=== PATIENT | male | born 1940 | race African-American/Black ===

== ENCOUNTER 2018-01-07 10:34 | Day surgery (SDC) | payer MEDICARE ==
[~2018-01-07] VITALS: Ht 180.3 cm; Wt 81.2 kg
[~2018-01-07 10:34] MED LIST: BETIMOL0.25 % OU; CETIRIZ/PSE1 TAB PO; COZAAR100 MG PO; FLEXERIL PO; FLEXERIL5 MG PO; GLIPIZIDE10 MG PO; HYDROCHLORO25 MG/TAB PO; LORTAB 5/3255 MG PO; LOSARTAN POTASS50 MG PO; METFORMIN1000 MG PO; METFORMIN500 MG PO; METOPROL TAR50 MG PO; METOPROLOL TART50 MG PO; MICARDIS40 MG PO; NAPROSYN500 MG PO; PANTOPRAZOLE SO40 MG PO; PRAVASTATIN40 MG PO; SIMBRINZA1 SUS OU; STOOL SOFTE1 PO; TIZANIDINE4 MG PO; ZPAK PO
[2018-01-07 13:34] VITALS: BP 139/77
== END 2018-01-07 13:42 | disposition home or self-care (01) ==
LOC: ENDO 10:34
PROVIDERS: ATTEND Internal Medicine Gastroenterology
PROC: 0DBL8ZX Excision of Transverse Colon, Via Natural or Artificial Opening Endoscopic, Diagnostic (ICD-10-PCS; principal; 2018-01-07)
DX: Z12.11 Encounter for screening for malignant neoplasm of colon (principal); D12.3 Benign neoplasm of transverse colon; K64.4 Residual hemorrhoidal skin tags; K64.8 Other hemorrhoids; I10 Essential (primary) hypertension; E11.9 Type 2 diabetes mellitus without complications; G47.30 Sleep apnea, unspecified; Z86.010 Personal history of colon polyps

== ENCOUNTER 2018-08-31 10:50 | Inpatient (IN) | payer MEDICARE ==
[~2018-08-31] VITALS: Ht 180.3 cm; Wt 79.4 kg
[~2018-08-31 10:50] MED LIST changes: -BETIMOL0.25 % OU; +BETIMOL0.5 % OU
[2018-08-31] MEDS ORDERED: METOPROL TAR100 MG PO (16:55)
[2018-08-31] MEDS ORDERED: CLONIDINE0.1 MG PO (16:56)
[2018-08-31] MEDS ORDERED: LUMIGAN0.01 % OU (16:57)
[2018-08-31] MEDS ORDERED: ASPIRIN LOW DOS81 M1 PO (17:14)
[2018-08-31] MEDS ORDERED: PRANDIN1 MG PO (17:15)
[2018-08-31] MEDS ORDERED: HYDROCO/APAP1 T10 PO (17:16)
[2018-08-31] MEDS ORDERED: COZAAR100 MG PO (17:19)
[2018-09-05] VITALS (9 sets, daily range): BP systolic 148–179; BP diastolic 86–114
--- NOTE | 2018-09-05 17:22 | NUR ---
PT ARRIVED FROM OR VIA BED AT 1721
--- NOTE | 2018-09-05 19:20 | NUR ---
ASSESSMENT IS COMPLETED: IV SITE IS FREE FROM REDNESS OR EDEMA. HR IS REG, PULSES ARE STRONG X4, ABD IS SOFT WITH ACTIVE BS. BREATH SOUNDS ARE CLEAR BILATERALLY. SCD IN PLACE. FAMILY IN THE ROOM. CONTINUE TO OSBERVE AND MONITOR.
[2018-09-06 00:27] VITALS: BP 143/88
--- NOTE | 2018-09-06 03:07 | NUR ---
PATIENT RESTING IN BED WITH AT BEDSIDE. SLING IN PLACE TO RIGHT ARM. CMS TO RIGHT FINGERS ARE WNL. PATIENT VOIDED 300CC OF YELLOW URINE IN URINAL. MEDICATED FOR POST-OP RIGHT SHOULDER PAIN-7/10 ON PAIN SCALE WITH PERCOCET 10/325MG PO FOR PAIN. SAFETY PRECAUTIONS REINFORCED. CALL LIGHT IN REACH. WILL CONT TO MONITOR.
[2018-09-06 05:02] VITALS: BP 150/92
[2018-09-06 06:10] LABS: HEMATOCRIT 41.9 % (39.0-50.0); HEMOGLOBIN 14.1 g/dl (14.0-18.0); IMMATURE GRANULOCYTES 0.5 % (0.0-5.0); MEAN CELL VOLUME 86.4 fL CALC (80.0-100.0); MEAN CORPUSCULAR HGB 29.1 pG CALC (26.0-32.0); MEAN CORPUSCULAR HGB CONC 33.7 g/L CALC (32.0-36.0); NEUT# 7.37 thou/uL (1.82-7.42); RED BLOOD COUNT 4.85 mill/uL (4.70-6.10); RED CELL DISTRI WIDTH 13.8 % (11.5-15.5)
[2018-09-06 06:29] LABS: ALBUMIN 3.9 g/dL (3.2-5.0); ALKALINE PHOSPHATASE 44 u/l (38-126); ANION GAP 19 (6-22 (CALC)); BILIRUBIN, TOTAL 0.8 mg/dL (0.0-1.4); BUN 10 mg/dL (8-23); BUN/CREATININE RATIO 16 (12-20 (CALC)); CARBON DIOXIDE 19 mmol/l (22-30); CHLORIDE 103 mmol/l (95-108); CREATININE 0.7 mg/dL (0.7-1.3); GFR > 60 ML/MIN (>=60 (CALC)); GFR FOR AFR.AMER. > 60 ML/MIN (>=60 (CALC)); POTASSIUM 3.9 mmol/l (3.5-5.1); SGOT/AST 20 u/l (19-48); SODIUM 137 mmol/l (137-146); TOTAL PROTEIN 6.3 g/dL (6.3-8.2)
[2018-09-06 07:35] VITALS: BP 187/96
--- NOTE | 2018-09-06 07:35 | NUR ---
PT RESTING SITTING UP IN BED, AM ASSESSMENT COMPLETED SEE INTERVENTION, SKIN WARM AND DRY DRESSING TO R AHOULDER INTACT SLING IN PLACE SOME EDEMA NOTED TO R HAND, GOOD MOVEMENT AND SENSATION. REMAINS AT BEDSIDE, BP ELEVATED , PT HAD HYPERTENSION LAST PM WITH MEDICATION CHANGES, WILL ADDRESS WITH MD THIS AM. CALL WARD WITHIN REACH, COMPLAINS OF PAIN TO R SHOULDER, WILL MEDICATE ORDERED, ACCU CHECK COMPLETED, COVERAGE GIVEN ORDERED. WILL CONTINUE TO MONITOR.
--- NOTE | 2018-09-06 10:30 | NUR ---
MEDICATED ORDERED EARLIER FOR HYPERTENSION WILL CONTINUE TO MONITOR, REMAINS AT BEDSIDE, PT STATES GOOD RELIEF WITH PAIN MEDICATION.
--- NOTE | 2018-09-06 11:30 | NUR ---
PT AMBULATED IN TERAN WAY WITH SPOUSE, SOME CONTINUED EDEMA TO R HAND, PT CONTINUES TO HAVE GOOD MOVEMENT AND SENSATION, CALL WARD WITHIN, COVERAGE GIVEN FOR ACCU CHECK, PT TOLERAING DIET WELL, WILL CONTINUE TO MONITOR.
[2018-09-06 11:57] VITALS: BP 150/84
--- NOTE | 2018-09-06 14:33 | NUR ---
PT REMAINS SITTING UP ON EDGE OF BED, OFFERS NO NEW COMPLAINTS, GONE AT THIS TIME, CALL WARD WITHIN REACH, WILL CONTINUE TO MONITOR.
[2018-09-06 16:39] VITALS: BP 125/70
[2018-09-06 20:00] VITALS: BP 110/66
--- NOTE | 2018-09-06 21:40 | NUR ---
PATIENT RESTING IN BED WITH AT BEDSIDE. PATIENT IS AWAKE ALERT AND ORIENTEDX3. BS-248 AND PATIENT COVERED WITH NOVAL SLIDING SCALE COVERAGE. MEDICATED FOR POST-OP PAIN WITH PERCOCET TABS 2. CMS TO RIGHT FINGERS ARE WNL. SLIGHTLY SWOLLEN. SAFETY PRECAUTIONS REINFORCED. CALL LIGHT IN REACH. WILL CONT TO MONITOR.
--- NOTE | 2018-09-07 | NUR ---
APPEARS SLEEPING AT THIS TIME WITH HOB ELEVATED AND EYES CLOSED. CALL LIGHT IN REACH. WILL CONT TO MONITOR.
[2018-09-07 00:07] VITALS: BP 117/67
--- NOTE | 2018-09-07 05:00 | NUR ---
PATIENT RESTING IN BED-DRESSING TO RIGHT SHOULDER REMOVED PER MD ORDERS AND LEFT ASMITA. SLING ALSO REMOVED. CMS TO FINGERS WNL. RESTING IN RECLINER AT BEDSIDE. CALL LIGHT IN REACH. WILL CONT TO MONITOR.
[2018-09-07 05:25] VITALS: BP 148/86
--- NOTE | 2018-09-07 07:10 | NUR ---
PT REPORT RECEIVED FROM ELIANA MEDEROS. PT SLEEPING, NO S/S OF DISTRESS. CALL LIGHT IN REACH. WILL CONTINUE TO MONITOR
[2018-09-07 07:41] LABS: HEMATOCRIT 39.5 % (39.0-50.0); HEMOGLOBIN 13.2 g/dl (14.0-18.0); IMMATURE GRANULOCYTES 0.4 % (0.0-5.0); MEAN CELL VOLUME 86.1 fL CALC (80.0-100.0); MEAN CORPUSCULAR HGB 28.8 pG CALC (26.0-32.0); MEAN CORPUSCULAR HGB CONC 33.4 g/L CALC (32.0-36.0); NEUT# 6.96 thou/uL (1.82-7.42); RED BLOOD COUNT 4.59 mill/uL (4.70-6.10); RED CELL DISTRI WIDTH 14.1 % (11.5-15.5)
[2018-09-07 07:42] VITALS: BP 158/82
--- NOTE | 2018-09-07 07:42 | NUR ---
PT ASSESSMENT COMPLETE. A/O X3. SPEECH IS CLEAR. RESP EVEN AND UNLABORED. LUNG SOUNDS CLEAR. INCENTIVE SPIROMETER AT BEDSIDE. BOWEL SOUNDS ACTIVE X4. STRONG RADIAL AND PEDAL PULSES. #20 LH LS. FLUSHED AND PATENT. SITE APPEARS HEALTHY. PT POST OP RT SHOULDER. PT C/O ACHING RT SHOULDER PAIN 7 OUT OF 10 ON PAIN SCALE. MEDICATED W/ TWO PERCOCET PO. ICE APPLIED TO RT SHOULDER. SWELLING NOTED, ELEVATED ON A PILLOW WELL. PT DENIES ANY FURTHER NEEDS. POC DISCUSSED. SAFETY PRECAUTIONS IN PLACE. CALL LIGHT IN REACH. WILL CONTINUE TO MONITOR
[2018-09-07 08:16] LABS: ALBUMIN 3.5 g/dL (3.2-5.0); ALKALINE PHOSPHATASE 46 u/l (38-126); ANION GAP 14 (6-22 (CALC)); BILIRUBIN, TOTAL 0.8 mg/dL (0.0-1.4); BUN 15 mg/dL (8-23); BUN/CREATININE RATIO 19 (12-20 (CALC)); CARBON DIOXIDE 23 mmol/l (22-30); CHLORIDE 103 mmol/l (95-108); CREATININE 0.8 mg/dL (0.7-1.3); GFR > 60 ML/MIN (>=60 (CALC)); GFR FOR AFR.AMER. > 60 ML/MIN (>=60 (CALC)); POTASSIUM 3.8 mmol/l (3.5-5.1); SGOT/AST 22 u/l (19-48); SODIUM 137 mmol/l (137-146)
[2018-09-07] MEDS ORDERED: PERCOCET1 TA4 PO (08:32)
[2018-09-07 08:42] VITALS: BP 158/82
--- NOTE | 2018-09-07 11:15 | NUR ---
D/C INSTRUCTIONS AND RT SHOULDER CARE DISCUSSED W/ PT AND SPOUSE. BOTH STATE UNDERSTANDING. IV REMOVED. CATHETER INTACT. PT DENIES ANY FURTHER NEEDS. PT GETTING DRESSED AT THIS TIME W/ ASSISTANCE OF .
--- NOTE | 2018-09-07 11:35 | NUR ---
Discharge instructions given. Patient verbalizes understanding of same. Discharged in stable condition via Wheelchair to Home with spouse. All belongings sent with pt.
== END 2018-09-07 11:35 | disposition home health service (06) | DRG 483 ==
LOC: MS2 09-05 07:30
PROVIDERS: ADMIT Orthopaedic Surgery; ATTEND Internal Medicine Geriatric Medicine
PROC: 0RRJ00Z Replacement of Right Shoulder Joint with Reverse Ball and Socket Synthetic Substitute, Open Approach (ICD-10-PCS; principal; 2018-09-05)
PROC: 0LS30ZZ Reposition Right Upper Arm Tendon, Open Approach (ICD-10-PCS; 2018-09-05)
PROC: 3E0T3BZ Introduction of Anesthetic Agent into Peripheral Nerves and Plexi, Percutaneous Approach (ICD-10-PCS; 2018-09-05)
DX: M19.011 Primary osteoarthritis, right shoulder (principal); M75.111 Incomplete rotator cuff tear or rupture of right shoulder, not specified as traumatic; S46.111A Strain of muscle, fascia and tendon of long head of biceps, right arm, initial encounter; I10 Essential (primary) hypertension; E11.9 Type 2 diabetes mellitus without complications; E78.5 Hyperlipidemia, unspecified; I25.10 Atherosclerotic heart disease of native coronary artery without angina pectoris; X58.XXXA Exposure to other specified factors, initial encounter; Z85.46 Personal history of malignant neoplasm of prostate; Z86.73 Personal history of transient ischemic attack (TIA), and cerebral infarction without residual deficits
CPT/HCPCS: C9290; J2710

== ENCOUNTER → 2018-11-23 | Outpatient (REF) | payer MEDICARE ==
[~2018-11-23] MED LIST changes: +ASPIRIN LOW DOS81 M1 PO; +CLONIDINE0.1 MG PO; +HYDROCO/APAP1 T10 PO; +LUMIGAN0.01 % OU; +METOPROL TAR100 MG PO; +PERCOCET1 TA4 PO; +PRANDIN1 MG PO
[2018-11-23 10:18] LABS: HEMATOCRIT 39.2 % (39.0-50.0); HEMOGLOBIN 12.7 g/dl (14.0-18.0); MEAN CELL VOLUME 88.5 fL CALC (80.0-100.0); MEAN CORPUSCULAR HGB 28.7 pG CALC (26.0-32.0); MEAN CORPUSCULAR HGB CONC 32.4 g/L CALC (32.0-36.0); NEUT# 2.05 thou/uL (1.82-7.42); RED BLOOD COUNT 4.43 mill/uL (4.70-6.10)
[2018-11-23 11:11] LABS: ALKALINE PHOSPHATASE 58 u/l (38-126); ANION GAP 15 (6-22 (CALC)); BILIRUBIN, TOTAL 0.3 mg/dL (0.0-1.4); BUN 16 mg/dL (8-23); BUN/CREATININE RATIO 18 (12-20 (CALC)); CALCULATED LDLCHOLESTEROL 72 mg/dL (62-129 (CALC)); CARBON DIOXIDE 28 mmol/l (22-30); CHLORIDE 103 mmol/l (95-108); CHOLESTEROL HDL RATIO 3.3 (<4.4 (CALC)); CREATININE 0.9 mg/dL (0.7-1.3); GFR > 60 ML/MIN (>=60 (CALC)); GFR FOR AFR.AMER. > 60 ML/MIN (>=60 (CALC)); HDL CHOLESTEROL 38 mg/dL (>=40); POTASSIUM 3.9 mmol/l (3.5-5.1); SGOT/AST 16 u/l (19-48); SODIUM 141 mmol/l (137-146); TOTAL CHOLESTEROL 126 mg/dl (0-199); TOTAL PROTEIN 6.4 g/dL (6.3-8.2); TRIGLYCERIDES REFLEX TO dLDL 82 mg/dl (30-149); VLDL CHOLESTROL 16 mg/dl (0-38 (CALC))
== END | disposition home or self-care (01) ==
LOC: LAB 09:36
PROVIDERS: ATTEND Internal Medicine Geriatric Medicine
DX: I10 Essential (primary) hypertension (principal); E78.5 Hyperlipidemia, unspecified; Z12.5 Encounter for screening for malignant neoplasm of prostate; E11.9 Type 2 diabetes mellitus without complications

== ENCOUNTER → 2018-12-18 | Outpatient (REF) | payer MEDICARE ==
[2018-12-18 09:30] LABS: ALBUMIN 4.4 g/dL (3.2-5.0); ALKALINE PHOSPHATASE 61 u/l (38-126); ANION GAP 13 (6-22 (CALC)); BILIRUBIN, TOTAL 0.5 mg/dL (0.0-1.4); BUN 15 mg/dL (8-23); BUN/CREATININE RATIO 15 (12-20 (CALC)); CARBON DIOXIDE 32 mmol/l (22-30); CHLORIDE 99 mmol/l (95-108); GFR > 60 ML/MIN (>=60 (CALC)); GFR FOR AFR.AMER. > 60 ML/MIN (>=60 (CALC)); POTASSIUM 4.1 mmol/l (3.5-5.1); SGOT/AST 18 u/l (19-48); SODIUM 139 mmol/l (137-146); TOTAL PROTEIN 6.9 g/dL (6.3-8.2)
== END | disposition home or self-care (01) ==
LOC: LAB 08:48
PROVIDERS: ATTEND Internal Medicine Geriatric Medicine
DX: E11.9 Type 2 diabetes mellitus without complications (principal)

== ENCOUNTER 2018-12-22 13:00 | Outpatient (RCR) | payer MEDICARE | END 2018-12-22 14:00 | disposition home or self-care (01) | LOC: PT 13:00 | PROVIDERS: ATTEND Orthopaedic Surgery | DX: Z47.1 Aftercare following joint replacement surgery (principal); Z96.611 Presence of right artificial shoulder joint; M25.511 Pain in right shoulder ==

== ENCOUNTER 2019-03-10 06:23 | Day surgery (SDC) | payer MEDICARE ==
[~2019-03-10] VITALS: Ht 175.3 cm; Wt 79.8 kg
[~2019-03-10 06:23] MED LIST changes: +FUROSEMIDE20 MG PO; +JANUVIA100 MG PO; +KLOR-CON M2020 MEQ PO
[2019-03-10 08:27] VITALS: BP 161/87
== END 2019-03-10 08:37 | disposition home or self-care (01) ==
LOC: ENDO 06:23 → ORM 17:15 → ENDO 17:20 → ORM 17:20
PROVIDERS: ATTEND Internal Medicine Gastroenterology
PROC: 0DJD8ZZ Inspection of Lower Intestinal Tract, Via Natural or Artificial Opening Endoscopic (ICD-10-PCS; principal; 2019-03-10)
DX: Z12.11 Encounter for screening for malignant neoplasm of colon (principal); K57.30 Diverticulosis of large intestine without perforation or abscess without bleeding; K64.4 Residual hemorrhoidal skin tags; I10 Essential (primary) hypertension; E11.9 Type 2 diabetes mellitus without complications; Z86.010 Personal history of colon polyps

== ENCOUNTER 2021-11-17 14:27 | Emergency (ER) | payer MEDICARE ==
[~2021-11-17] VITALS: Ht 175.3 cm; Wt 72.0 kg
[2021-11-17 15:07] LABS: HEMATOCRIT 44.7 % (39.0-50.0); HEMOGLOBIN 14.1 g/dl (14.0-18.0); IMMATURE GRANULOCYTES 0.2 % (0.0-5.0); MEAN CORPUSCULAR HGB CONC 31.5 g/dL CAL (32.0-36.0); NEUT# 2.32 thou/uL (1.82-7.42); RED BLOOD COUNT 4.86 mill/uL (4.70-6.10); RED CELL DISTRI WIDTH 14.4 % (11.5-15.5)
[2021-11-17 15:08] VITALS: BP 190/102
[2021-11-17 15:19] LABS: ALBUMIN 4.3 g/dL (3.2-5.0); ALKALINE PHOSPHATASE 75 u/l (38-126); ANION GAP 17 (6-22 (CALC)); BILIRUBIN, TOTAL 0.3 mg/dL (0.0-1.4); BUN 11 mg/dL (8-23); BUN/CREATININE RATIO 14 (12-20 (CALC)); CARBON DIOXIDE 22 mmol/l (22-30); CHLORIDE 106 mmol/l (95-108); CREATININE 0.8 mg/dL (0.7-1.3); GFR > 60 ML/MIN (>=60 (CALC)); GFR FOR AFR.AMER. > 60 ML/MIN (>=60 (CALC)); POTASSIUM 4.1 mmol/l (3.5-5.1); SGOT/AST 21 u/l (19-48); SODIUM 140 mmol/l (137-146); TOTAL PROTEIN 7.4 g/dL (6.3-8.2)
[2021-11-17 15:24] LABS: PROTHROMBIN TIME 10.4 SECONDS (9.0-12.5)
== END 2021-11-17 15:47 | disposition short-term general hospital (02) ==
LOC: ED 14:27
PROVIDERS: Emergency Medicine
DX: I61.1 Nontraumatic intracerebral hemorrhage in hemisphere, cortical (principal); G83.11 Monoplegia of lower limb affecting right dominant side; I10 Essential (primary) hypertension; E11.9 Type 2 diabetes mellitus without complications; Z79.84 Long term (current) use of oral hypoglycemic drugs

== ENCOUNTER 2022-11-12 06:57 | Day surgery (SDC) | payer MEDICARE ==
[~2022-11-12] VITALS: Ht 167.6 cm; Wt 82.1 kg
[~2022-11-12 06:57] MED LIST changes: +BETIMOL0.51 OU; +GLIPIZIDE10 M2 PO; +METFORMIN HCL1000 MG PO; +NORVASC5 M1 PO; +PIOGLITAZONE HC30 MG PO; +ROSUVASTATIN CA20 MG PO; +XALATAN0.005 % OP; +[UNRECOGNIZED DRUG - OTHER]; +[UNRECOGNIZED DRUG - REMARK]
[2022-11-12 09:55] VITALS: BP 159/88
== END 2022-11-12 10:10 | disposition home or self-care (01) ==
LOC: ENDO 06:57 → ORM 08:45 → ENDO 08:45
PROVIDERS: ATTEND Surgery
PROC: 0DJD8ZZ Inspection of Lower Intestinal Tract, Via Natural or Artificial Opening Endoscopic (ICD-10-PCS; principal; 2022-11-12)
DX: R10.30 Lower abdominal pain, unspecified (principal); K64.8 Other hemorrhoids; I10 Essential (primary) hypertension; E11.9 Type 2 diabetes mellitus without complications; Z79.84 Long term (current) use of oral hypoglycemic drugs; Z86.010 Personal history of colon polyps

== ENCOUNTER 2023-10-28 12:47 | Emergency (ER) | payer MEDICARE ==
[~2023-10-28] VITALS: Ht 167.6 cm; Wt 81.6 kg
[2023-10-28] VITALS (8 sets, daily range): BP systolic 137–177; BP diastolic 76–96
[2023-10-28 13:45] LABS: BASO% 0.4 % (0-3); EOS% 0.4 % (0-8); HEMATOCRIT 41.6 % (39.0-50.0); HEMOGLOBIN 13.3 g/dl (14.0-18.0); IMMATURE GRANULOCYTES 0.2 % (0.0-5.0); LYMPH% 15.1 % (15-41); MEAN CELL VOLUME 89.7 fL CALC (80.0-100.0); MEAN CORPUSCULAR HGB 28.7 pG CALC (26.0-32.0); MONO% 6.2 % (2-13); NEUT# 4.02 thou/uL (1.82-7.42); NEUT% 77.7 % (42-76); RED BLOOD COUNT 4.64 mill/uL (4.70-6.10)
[2023-10-28 14:03] LABS: ALBUMIN 4.4 g/dL (3.2-5.0); ALKALINE PHOSPHATASE 63 u/l (38-126); ANION GAP 15 (6-22 (CALC)); BUN 22 mg/dL (8-23); BUN/CREATININE RATIO 24 (12-20 (CALC)); CARBON DIOXIDE 21 mmol/l (22-30); CHLORIDE 108 mmol/l (95-108); CREATININE 0.9 mg/dL (0.7-1.3); GFR FOR AFR.AMER. > 60 ML/MIN (>=60 (CALC)); GFR OTHER RACES > 60 ML/MIN (>=60 (CALC)); POTASSIUM 4.3 mmol/l (3.5-5.1); SGOT/AST 22 u/l (19-48); SODIUM 140 mmol/l (137-146); TOTAL PROTEIN 6.7 g/dL (6.3-8.2)
[2023-10-28 14:10] LABS: BILIRUBIN, TOTAL 0.5 mg/dL (0.2-1.3)
[2023-10-28 16:08] LABS: URINE BILIRUBIN - DIPSTICK Negative (NEGATIVE); URINE BLOOD DIPSTICK Negative (NEGATIVE); URINE GLUCOSE - DIPSTICK Negative (NEGATIVE); URINE KETONE Negative (NEGATIVE); URINE LEUK ESTERASE Negative (NEGATIVE); URINE NITRITE - DIPSTICK Negative (Negative); URINE PH 5.5 (4.5-8.0); URINE PROTEIN - DIPSTICK Negative (NEG-TRACE); URINE SPECIFIC GRAVITY 1.025
[2023-10-28 16:17] LABS: URINE COLOR Yellow
[2023-10-28] MEDS ORDERED: BACTRIM DS1 TAB PO (18:15)
== END 2023-10-28 18:36 | disposition home or self-care (01) ==
LOC: ED 12:47
PROVIDERS: Nurse Practitioner
DX: E11.65 Type 2 diabetes mellitus with hyperglycemia (principal); R30.0 Dysuria; I10 Essential (primary) hypertension; Z79.84 Long term (current) use of oral hypoglycemic drugs